=== PATIENT | male | born 1975 | race Caucasian/White ===

== ENCOUNTER 2017-09-20 11:56 | Emergency (ER) | payer OTHER, MEDICARE ==
[~2017-09-20] VITALS: Ht 170.1 cm; Wt 75.7 kg
[~2017-09-20 11:56] MED LIST: KEPPRA1000 MG PO; LABETALOL HCL200 MG PO
[2017-09-20 12:51] LABS: BASO % 0.3 % (0.0-1.0); EOS # 0.1 10*3/uL (0.0-0.4); EOS % 1.6 % (1.0-4.0); HEMATOCRIT 36.9 % (42.0-52.0); HEMOGLOBIN 12.5 g/dl (14.0-18.0); LYMPH # 1.5 10*3/uL (1.3-4.4); LYMPH % 21.4 % (27.0-41.0); MEAN CELL VOLUME 84.6 fl (80.0-94.0); MEAN CORPUSCULAR HGB 28.7 pg (27.0-31.0); MEAN CORPUSCULAR HGB CONC 33.9 g/dl (33.0-37.0); MEAN PLATELET VOLUME 10.7 fl (9.6-12.3); MONO # 0.4 10*3/uL (0.1-1.0); MONO % 5.5 % (3.0-9.0); NEUT # 4.9 10*3/uL (2.3-7.9); NEUT % 70.8 % (47.0-73.0); PLATELET COUNT AUTOMATED 151 10*3/uL (130-400); RED BLOOD COUNT 4.36 10*6/uL (4.50-5.90); RED CELL DISTRI WIDTH 13.5 % (0-14.5)
[2017-09-20 13:00] LABS: ACT PARTIAL THROMBO TIME 35.6 SECONDS (20.8-31.5); INTERNATIONAL NORM RATIO 2.7 (2.0-3.5)
[2017-09-20 13:10] LABS: ALBUMIN 3.9 gm/dl (3.1-4.5); ALKALINE PHOSPHATASE 89 U/L (45-117); BUN 32 mg/dl (7-24); CHLORIDE 105 mmol/L (98-107); CREATININE 1.78 mg/dL (0.70-1.30); LIPASE 266 U/L (73-393); POTASSIUM 4.7 mmol/L (3.5-5.1); SGOT/AST 17 IU/L (3-35); SGPT/ALT 28 U/L (12-78); SODIUM 139 mmol/L (136-145); TOTAL PROTEIN 7.4 gm/dL (6.4-8.2)
[2017-09-20 13:16] LABS: ACETAMINOPHEN (TYLENOL) < 2.0 ug/ml (10-30); ETHYL ALCOHOL < 3.0 mg/dl (<3)
[2017-09-20] MEDS ORDERED: ZOLOFT100 MG PO (13:31)
[2017-09-20] MEDS ORDERED: MULTIVITAMINS1 EAC5 PO (13:31)
[2017-09-20] MEDS ORDERED: LISINOPRIL10 M1 PO (13:31)
[2017-09-20] MEDS ORDERED: LIPITOR10 MG PO (13:31)
[2017-09-20] MEDS ORDERED: VITAMIN D31000 UNI1 PO (13:32)
[2017-09-20 14:40] LABS: BILIRUBIN NEGATIVE (NEGATIVE); BLOOD 3+ (NEGATIVE); CLARITY CLEAR (CLEAR); COLOR YELLOW (YELLOW); GLUCOSE NEGATIVE (NEGATIVE); KETONE NEGATIVE (NEGATIVE); LEUKO ESTERASE NEGATIVE (NEGATIVE); NITRITE NEGATIVE (NEGATIVE); SPECIFIC GRAVITY 1.015 (1.005-1.030); UROBILINOGEN 0.2 E.U./dl (0.2-1.0)
[2017-09-20 14:50] LABS: URINE AMPHETAMINES < 1000 (1000ng/ml); URINE BARBITURATES < 200 (200ng/ml); URINE BENZODIAZEPINES < 200 (200ng/ml); URINE CANNABINOIDS (THC) < 50 (50ng/ml); URINE COCAINE < 300 (300ng/ml); URINE METHADONE < 300 (300ng/ml); URINE OPIATES < 300 (300ng/ml)
[2017-09-20 14:53] LABS: URINE PHENCYCLIDINE < 25 (25ng/ml)
[2017-09-20 15:00] LABS: BACTERIA TRACE; WBC 0-2 wbc/hpf (0-5)
== END 2017-09-20 16:35 | disposition home or self-care (01) ==
LOC: ED 11:56
PROVIDERS: Physician Assistant
DX: I82.5Z2 Chronic embolism and thrombosis of unspecified deep veins of left distal lower extremity (principal); Z79.899 Other long term (current) drug therapy; Z98.890 Other specified postprocedural states; Z79.01 Long term (current) use of anticoagulants

== ENCOUNTER 2017-12-31 22:30 | Emergency (ER) | payer MEDICARE, OTHER ==
[~2017-12-31] VITALS: Ht 172.7 cm; Wt 63.5 kg
[~2017-12-31 22:30] MED LIST changes: +AMANTADINE HCL100 M1 PO; +AMPICILLIN2 GM IJ; +APLISOL5 TUB UNIT IC; +BISACODYL10 MG RC; +ENULOSE10 GM/151 PO; +FEROSUL325 MG PO; +HEPARIN SO5000 UNIT1 IJ; +KEPPRA750 MG PO; +LIPITOR10 MG PO; +LIPITOR20 MG PO; +LISINOPRIL10 M1 PO; +MAPAP325 MG PO; +MULTIVITAMINS1 EAC5 PO; +SENNOSIDES-DOC1 EACH PO; +SERTRALINE HYDR25 MG PO; +Saline Flush Syr5 ML IV; +VITAMIN C500 M8 PO; +VITAMIN D31000 UNI1 PO; +ZOLOFT100 MG PO
[2018-01-01 00:20] LABS: BASO # 0.1 10*3/uL (0.0-0.1); BASO % 0.6 % (0.0-1.0); EOS # 0.1 10*3/uL (0.0-0.4); EOS % 1.2 % (1.0-4.0); HEMATOCRIT 32.3 % (42.0-52.0); HEMOGLOBIN 10.4 g/dl (14.0-18.0); LYMPH # 1.7 10*3/uL (1.3-4.4); LYMPH % 18.8 % (27.0-41.0); MEAN CELL VOLUME 84.3 fl (80.0-94.0); MEAN CORPUSCULAR HGB 27.2 pg (27.0-31.0); MEAN CORPUSCULAR HGB CONC 32.2 g/dl (33.0-37.0); MEAN PLATELET VOLUME 9.6 fl (9.6-12.3); MONO # 0.5 10*3/uL (0.1-1.0); MONO % 5.1 % (3.0-9.0); NEUT # 6.7 10*3/uL (2.3-7.9); NEUT % 73.9 % (47.0-73.0); PLATELET COUNT AUTOMATED 308 10*3/uL (130-400); RED BLOOD COUNT 3.83 10*6/uL (4.50-5.90); RED CELL DISTRI WIDTH 15.8 % (0-14.5); WHITE BLOOD COUNT 9.1 10*3/uL (4.8-10.8)
[2018-01-01 00:30] LABS: ACT PARTIAL THROMBO TIME 26.3 SECONDS (20.8-31.5); INTERNATIONAL NORM RATIO 1.1 (2.0-3.5)
== END 2018-01-01 01:01 | disposition home or self-care (01) ==
LOC: ED 22:30
PROVIDERS: Student in an Organized Health Care Education/Training Program
DX: S00.93XA Contusion of unspecified part of head, initial encounter (principal); Z79.899 Other long term (current) drug therapy; W18.39XA Other fall on same level, initial encounter; Y93.89 Activity, other specified; Y92.531 Health care provider office as the place of occurrence of the external cause; Y99.8 Other external cause status

== ENCOUNTER 2018-02-07 11:06 | Emergency (ER) | payer OTHER, MEDICARE ==
[~2018-02-07] VITALS: Ht 170.1 cm; Wt 61.2 kg
[~2018-02-07 11:06] MED LIST changes: +SERTRALINE HYD100 MG PO; -SERTRALINE HYDR25 MG PO
[2018-02-07 11:32] LABS: BASO % 0.5 % (0.0-1.0); EOS # 0.1 10*3/uL (0.0-0.4); EOS % 1.9 % (1.0-4.0); HEMATOCRIT 40.4 % (42.0-52.0); HEMOGLOBIN 13.2 g/dl (14.0-18.0); LYMPH # 1.2 10*3/uL (1.3-4.4); LYMPH % 17.9 % (27.0-41.0); MEAN CELL VOLUME 84.3 fl (80.0-94.0); MEAN CORPUSCULAR HGB 27.6 pg (27.0-31.0); MEAN CORPUSCULAR HGB CONC 32.7 g/dl (33.0-37.0); MEAN PLATELET VOLUME 10.6 fl (9.6-12.3); MONO # 0.3 10*3/uL (0.1-1.0); MONO % 4.9 % (3.0-9.0); NEUT # 4.8 10*3/uL (2.3-7.9); NEUT % 74.6 % (47.0-73.0); PLATELET COUNT AUTOMATED 177 10*3/uL (130-400); RED BLOOD COUNT 4.79 10*6/uL (4.50-5.90); RED CELL DISTRI WIDTH 15.1 % (0-14.5); WHITE BLOOD COUNT 6.5 10*3/uL (4.8-10.8)
[2018-02-07 11:39] LABS: INTERNATIONAL NORM RATIO 2.6 (2.0-3.5)
[2018-02-07 11:47] LABS: ALBUMIN 3.9 gm/dl (3.1-4.5); CREATININE 1.67 mg/dL (0.70-1.30); POTASSIUM 3.8 mmol/L (3.5-5.1); TOTAL PROTEIN 7.3 gm/dL (6.4-8.2)
[2018-02-07 14:01] LABS: BILIRUBIN NEGATIVE (NEGATIVE); BLOOD 3+ (NEGATIVE); CLARITY SL CLOUDY (CLEAR); GLUCOSE NEGATIVE (NEGATIVE); KETONE NEGATIVE (NEGATIVE); LEUKO ESTERASE TRACE (NEGATIVE); NITRITE NEGATIVE (NEGATIVE); PH 6.5 (5.0-9.0); SPECIFIC GRAVITY <= 1.005 (1.005-1.030); UROBILINOGEN 0.2 E.U./dl (0.2-1.0)
[2018-02-07 14:25] LABS: COLOR RED (YELLOW); RBC TNTC rbc/hpf (0-2)
[2018-04-09] MEDS ORDERED: DESMOPRESSIN NAS (14:03)
[2018-04-09] MEDS ORDERED: HYDROCHLOROTH12.5 M2 PO (14:05)
== END 2018-02-07 17:22 | disposition home or self-care (01) ==
LOC: ED 11:06
PROVIDERS: Nurse Practitioner Family
DX: N20.0 Calculus of kidney (principal); R31.9 Hematuria, unspecified; I10 Essential (primary) hypertension; Z79.02 Long term (current) use of antithrombotics/antiplatelets; Z79.899 Other long term (current) drug therapy

== ENCOUNTER 2018-03-09 15:22 | Inpatient (IN) | payer OTHER, MEDICARE ==
[~2018-03-09] VITALS: Ht 170.1 cm; Wt 65.9 kg
[2018-03-09] VITALS (7 sets, daily range): BP systolic 170–190; BP diastolic 80–123
--- NOTE | ~2018-03-09 | EKG ---
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
--- NOTE | ~2018-03-09 | EKG ---
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
[2018-03-09 15:54] LABS: BASO # 0.1 10*3/uL (0.0-0.1); BASO % 0.6 % (0.0-1.0); EOS # 0.1 10*3/uL (0.0-0.4); EOS % 1.5 % (1.0-4.0); HEMOGLOBIN 14.7 g/dl (14.0-18.0); LYMPH # 1.7 10*3/uL (1.3-4.4); LYMPH % 17.6 % (27.0-41.0); MEAN CELL VOLUME 84.1 fl (80.0-94.0); MEAN CORPUSCULAR HGB 27.5 pg (27.0-31.0); MEAN CORPUSCULAR HGB CONC 32.7 g/dl (33.0-37.0); MEAN PLATELET VOLUME 11.6 fl (9.6-12.3); MONO # 0.5 10*3/uL (0.1-1.0); NEUT # 7.2 10*3/uL (2.3-7.9); NEUT % 75.1 % (47.0-73.0); PLATELET COUNT AUTOMATED 163 10*3/uL (130-400); RED BLOOD COUNT 5.35 10*6/uL (4.50-5.90); RED CELL DISTRI WIDTH 14.8 % (0-14.5); WHITE BLOOD COUNT 9.5 10*3/uL (4.8-10.8)
[2018-03-09 16:05] LABS: INTERNATIONAL NORM RATIO 3.4 (2.0-3.5)
[2018-03-09 16:13] LABS: ALBUMIN 3.7 gm/dl (3.1-4.5); ALKALINE PHOSPHATASE 132 U/L (45-117); BUN 32 mg/dl (7-24); CHLORIDE 118 mmol/L (98-107); CREATININE 2.01 mg/dL (0.70-1.30); POTASSIUM 3.5 mmol/L (3.5-5.1); SGOT/AST 19 IU/L (3-35); SGPT/ALT 37 U/L (12-78); SODIUM 155 mmol/L (136-145); TOTAL PROTEIN 7.3 gm/dL (6.4-8.2)
[2018-03-09 16:15] LABS: TROPONIN I < 0.015 ng/ml (<0.045)
[2018-03-09 16:42] LABS: BILIRUBIN NEGATIVE (NEGATIVE); BLOOD 2+ (NEGATIVE); CLARITY SL CLOUDY (CLEAR); COLOR YELLOW (YELLOW); GLUCOSE NEGATIVE (NEGATIVE); KETONE NEGATIVE (NEGATIVE); LEUKO ESTERASE NEGATIVE (NEGATIVE); NITRITE NEGATIVE (NEGATIVE); UROBILINOGEN 0.2 E.U./dl (0.2-1.0)
[2018-03-09 16:51] LABS: BACTERIA 4+; URINE AMPHETAMINES < 1000 (1000ng/ml); URINE BARBITURATES < 200 (200ng/ml); URINE BENZODIAZEPINES < 200 (200ng/ml); URINE CANNABINOIDS (THC) < 50 (50ng/ml); URINE COCAINE < 300 (300ng/ml); URINE METHADONE < 300 (300ng/ml); URINE OPIATES < 300 (300ng/ml)
[2018-03-09 16:54] LABS: URINE PHENCYCLIDINE < 25 (25ng/ml)
[2018-03-09] MEDS ORDERED: NORVASC10 MG PO (21:07)
[2018-03-09] MEDS ORDERED: CLONIDINE0.2 MG PO (21:08)
[2018-03-09] MEDS ORDERED: COUMADIN2.5 M1 PO (21:10)
[2018-03-09] MEDS ORDERED: IRON325 M3 PO (21:11)
[2018-03-10] VITALS: BP 142/70
[2018-03-10 06:54] LABS: BASO % 0.4 % (0.0-1.0); EOS # 0.2 10*3/uL (0.0-0.4); EOS % 2.5 % (1.0-4.0); HEMATOCRIT 41.2 % (42.0-52.0); HEMOGLOBIN 13.3 g/dl (14.0-18.0); LYMPH # 1.9 10*3/uL (1.3-4.4); LYMPH % 27.8 % (27.0-41.0); MEAN CELL VOLUME 84.4 fl (80.0-94.0); MEAN CORPUSCULAR HGB 27.3 pg (27.0-31.0); MEAN CORPUSCULAR HGB CONC 32.3 g/dl (33.0-37.0); MEAN PLATELET VOLUME 12.6 fl (9.6-12.3); MONO # 0.4 10*3/uL (0.1-1.0); MONO % 5.6 % (3.0-9.0); NEUT # 4.4 10*3/uL (2.3-7.9); NEUT % 63.4 % (47.0-73.0); PLATELET COUNT AUTOMATED 130 10*3/uL (130-400); RED BLOOD COUNT 4.88 10*6/uL (4.50-5.90); RED CELL DISTRI WIDTH 14.8 % (0-14.5); WHITE BLOOD COUNT 6.9 10*3/uL (4.8-10.8)
[2018-03-10 07:08] LABS: ALBUMIN 3.1 gm/dl (3.1-4.5); CREATININE 1.57 mg/dL (0.70-1.30); FREE T4 0.77 ng/dl (0.76-1.46); PHOSPHOROUS 3.2 mg/dL (2.5-4.9); POTASSIUM 3.6 mmol/L (3.5-5.1); TOTAL PROTEIN 6.5 gm/dL (6.4-8.2)
[2018-03-10 07:13] LABS: THYROID STIM HORMONE (HS) 0.976 uIU/ml (0.358-4.75)
[2018-03-10 08:00] VITALS: BP 182/98
[2018-03-10 12:00] VITALS: BP 196/110
[2018-03-10 16:00] VITALS: BP 161/101
[2018-03-10 17:08] LABS: CREATININE 1.57 mg/dL (0.70-1.30); POTASSIUM 3.5 mmol/L (3.5-5.1)
[2018-03-10 20:00] VITALS: BP 150/102
[2018-03-11] VITALS: BP 156/101
[2018-03-11 07:09] LABS: BASO % 0.4 % (0.0-1.0); EOS # 0.2 10*3/uL (0.0-0.4); EOS % 2.9 % (1.0-4.0); HEMOGLOBIN 12.6 g/dl (14.0-18.0); LYMPH # 1.8 10*3/uL (1.3-4.4); LYMPH % 25.7 % (27.0-41.0); MEAN CELL VOLUME 83.9 fl (80.0-94.0); MEAN CORPUSCULAR HGB 27.1 pg (27.0-31.0); MEAN CORPUSCULAR HGB CONC 32.3 g/dl (33.0-37.0); MEAN PLATELET VOLUME 12.2 fl (9.6-12.3); MONO # 0.3 10*3/uL (0.1-1.0); MONO % 4.8 % (3.0-9.0); NEUT # 4.7 10*3/uL (2.3-7.9); NEUT % 65.9 % (47.0-73.0); PLATELET COUNT AUTOMATED 121 10*3/uL (130-400); RED BLOOD COUNT 4.65 10*6/uL (4.50-5.90); RED CELL DISTRI WIDTH 14.7 % (0-14.5); WHITE BLOOD COUNT 7.1 10*3/uL (4.8-10.8)
[2018-03-11 07:16] LABS: INTERNATIONAL NORM RATIO 2.7 (2.0-3.5)
[2018-03-11 07:31] LABS: ALBUMIN 2.8 gm/dl (3.1-4.5); POTASSIUM 3.6 mmol/L (3.5-5.1)
[2018-03-11 07:34] LABS: CREATININE 1.62 mg/dL (0.70-1.30); PHOSPHOROUS 3.2 mg/dL (2.5-4.9)
[2018-03-11 08:00] VITALS: BP 138/93
[2018-03-11 12:00] VITALS: BP 140/83
[2018-03-11 16:00] VITALS: BP 140/96
[2018-03-11 20:00] VITALS: BP 121/92
[2018-03-12] VITALS: BP 140/90
[2018-03-12 06:29] LABS: BASO % 0.5 % (0.0-1.0); EOS # 0.2 10*3/uL (0.0-0.4); EOS % 2.3 % (1.0-4.0); HEMATOCRIT 38.3 % (42.0-52.0); HEMOGLOBIN 12.4 g/dl (14.0-18.0); LYMPH # 1.8 10*3/uL (1.3-4.4); LYMPH % 24.4 % (27.0-41.0); MEAN CELL VOLUME 83.1 fl (80.0-94.0); MEAN CORPUSCULAR HGB 26.9 pg (27.0-31.0); MEAN CORPUSCULAR HGB CONC 32.4 g/dl (33.0-37.0); MONO # 0.3 10*3/uL (0.1-1.0); MONO % 4.6 % (3.0-9.0); NEUT % 67.9 % (47.0-73.0); PLATELET COUNT AUTOMATED 112 10*3/uL (130-400); RED BLOOD COUNT 4.61 10*6/uL (4.50-5.90); RED CELL DISTRI WIDTH 14.6 % (0-14.5); WHITE BLOOD COUNT 7.4 10*3/uL (4.8-10.8)
[2018-03-12 06:39] LABS: POTASSIUM 3.6 mmol/L (3.5-5.1)
[2018-03-12 06:42] LABS: CREATININE 1.74 mg/dL (0.70-1.30); TOTAL PROTEIN 6.1 gm/dL (6.4-8.2)
[2018-03-12 07:15] LABS: INTERNATIONAL NORM RATIO 2.4 (2.0-3.5)
[2018-03-12 08:00] VITALS: BP 137/86
[2018-03-12 11:55] LABS: BILIRUBIN NEGATIVE (NEGATIVE); BLOOD 1+ (NEGATIVE); COLOR YELLOW (YELLOW); GLUCOSE NEGATIVE (NEGATIVE); KETONE NEGATIVE (NEGATIVE); LEUKO ESTERASE 1+ (NEGATIVE); NITRITE NEGATIVE (NEGATIVE); SPECIFIC GRAVITY <= 1.005 (1.005-1.030); UROBILINOGEN 0.2 E.U./dl (0.2-1.0)
[2018-03-12 12:11] LABS: CLARITY SL CLOUDY (CLEAR)
[2018-03-12 12:12] LABS: BACTERIA 2+; WBC 21-30 wbc/hpf (0-5)
[2018-03-12 12:14] VITALS: BP 132/90
[2018-03-12 16:00] VITALS: BP 141/85
[2018-03-12 19:03] LABS: CREATININE 1.82 mg/dL (0.70-1.30); POTASSIUM 3.8 mmol/L (3.5-5.1)
[2018-03-12 20:00] VITALS: BP 136/90
[2018-03-13] VITALS: BP 142/90
[2018-03-13 06:10] VITALS: BP 152/98
[2018-03-13 06:28] LABS: CREATININE 1.72 mg/dL (0.70-1.30); POTASSIUM 3.6 mmol/L (3.5-5.1)
[2018-03-13 06:48] LABS: BASO % 0.4 % (0.0-1.0); EOS # 0.2 10*3/uL (0.0-0.4); EOS % 2.3 % (1.0-4.0); HEMATOCRIT 36.9 % (42.0-52.0); HEMOGLOBIN 12.1 g/dl (14.0-18.0); LYMPH # 1.8 10*3/uL (1.3-4.4); LYMPH % 23.4 % (27.0-41.0); MEAN CELL VOLUME 83.1 fl (80.0-94.0); MEAN CORPUSCULAR HGB 27.3 pg (27.0-31.0); MEAN CORPUSCULAR HGB CONC 32.8 g/dl (33.0-37.0); MEAN PLATELET VOLUME 12.1 fl (9.6-12.3); MONO # 0.4 10*3/uL (0.1-1.0); MONO % 5.3 % (3.0-9.0); NEUT # 5.1 10*3/uL (2.3-7.9); NEUT % 68.2 % (47.0-73.0); PLATELET COUNT AUTOMATED 127 10*3/uL (130-400); RED BLOOD COUNT 4.44 10*6/uL (4.50-5.90); RED CELL DISTRI WIDTH 14.8 % (0-14.5); WHITE BLOOD COUNT 7.5 10*3/uL (4.8-10.8)
[2018-03-13 12:00] VITALS: BP 133/87
[2018-03-13 16:00] VITALS: BP 134/72
[2018-03-13 20:00] VITALS: BP 130/84
[2018-03-14] VITALS: BP 153/94
[2018-03-14 00:16] VITALS: BP 140/96
[2018-03-14 00:38] LABS: BILIRUBIN NEGATIVE (NEGATIVE); BLOOD 3+ (NEGATIVE); CLARITY SL CLOUDY (CLEAR); COLOR RED (YELLOW); GLUCOSE NEGATIVE (NEGATIVE); KETONE NEGATIVE (NEGATIVE); LEUKO ESTERASE 2+ (NEGATIVE); NITRITE NEGATIVE (NEGATIVE); SPECIFIC GRAVITY <= 1.005 (1.005-1.030); UROBILINOGEN 0.2 E.U./dl (0.2-1.0)
[2018-03-14 00:58] LABS: RBC TNTC rbc/hpf (0-2)
[2018-03-14 06:28] LABS: CREATININE 1.76 mg/dL (0.70-1.30); POTASSIUM 3.8 mmol/L (3.5-5.1)
[2018-03-14 10:41] LABS: CREATININE 1.78 mg/dL (0.70-1.30); POTASSIUM 3.7 mmol/L (3.5-5.1)
[2018-03-14 12:00] VITALS: BP 151/92
[2018-03-14 13:02] LABS: BASO % 0.2 % (0.0-1.0); HEMATOCRIT 41.5 % (42.0-52.0); HEMOGLOBIN 13.3 g/dl (14.0-18.0); LYMPH # 0.4 10*3/uL (1.3-4.4); LYMPH % 6.8 % (27.0-41.0); MEAN CELL VOLUME 85.7 fl (80.0-94.0); MEAN CORPUSCULAR HGB 27.5 pg (27.0-31.0); MEAN PLATELET VOLUME 11.1 fl (9.6-12.3); MONO # 0.3 10*3/uL (0.1-1.0); MONO % 5.2 % (3.0-9.0); NEUT % 87.6 % (47.0-73.0); PLATELET COUNT AUTOMATED 110 10*3/uL (130-400); RED BLOOD COUNT 4.84 10*6/uL (4.50-5.90); RED CELL DISTRI WIDTH 14.9 % (0-14.5); WHITE BLOOD COUNT 5.7 10*3/uL (4.8-10.8)
[2018-03-14 13:16] LABS: ALBUMIN 3.3 gm/dl (3.1-4.5); CREATININE 1.95 mg/dL (0.70-1.30); POTASSIUM 4.2 mmol/L (3.5-5.1); TOTAL PROTEIN 7.2 gm/dL (6.4-8.2)
[2018-03-14 14:48] VITALS: BP 160/110
[2018-03-14 16:00] VITALS: BP 151/92
[2018-03-14 20:00] VITALS: BP 135/99
[2018-03-15] VITALS: BP 151/96
[2018-03-15 06:59] LABS: CREATININE 1.68 mg/dL (0.70-1.30); POTASSIUM 3.5 mmol/L (3.5-5.1)
[2018-03-15 07:00] LABS: BASO % 0.6 % (0.0-1.0); EOS # 0.1 10*3/uL (0.0-0.4); EOS % 1.2 % (1.0-4.0); HEMOGLOBIN 11.4 g/dl (14.0-18.0); LYMPH # 0.7 10*3/uL (1.3-4.4); LYMPH % 15.4 % (27.0-41.0); MEAN CORPUSCULAR HGB 27.5 pg (27.0-31.0); MEAN CORPUSCULAR HGB CONC 33.3 g/dl (33.0-37.0); MEAN PLATELET VOLUME 12.1 fl (9.6-12.3); MONO # 0.2 10*3/uL (0.1-1.0); MONO % 4.8 % (3.0-9.0); NEUT # 3.7 10*3/uL (2.3-7.9); NEUT % 77.8 % (47.0-73.0); PLATELET COUNT AUTOMATED 123 10*3/uL (130-400); RED BLOOD COUNT 4.15 10*6/uL (4.50-5.90); RED CELL DISTRI WIDTH 14.8 % (0-14.5); WHITE BLOOD COUNT 4.8 10*3/uL (4.8-10.8)
[2018-03-15 07:07] LABS: HEMATOCRIT 34.2 % (42.0-52.0); MEAN CELL VOLUME 82.4 fl (80.0-94.0)
[2018-03-15 07:14] LABS: INTERNATIONAL NORM RATIO 3.8 (2.0-3.5)
[2018-03-15 08:00] VITALS: BP 146/99
[2018-03-15 12:00] VITALS: BP 148/102
[2018-03-15 16:00] VITALS: BP 130/90
[2018-03-15 20:00] VITALS: BP 113/83
[2018-03-16] VITALS: BP 121/86
[2018-03-16 06:30] LABS: BASO % 0.4 % (0.0-1.0); EOS # 0.1 10*3/uL (0.0-0.4); EOS % 2.4 % (1.0-4.0); HEMATOCRIT 31.2 % (42.0-52.0); HEMOGLOBIN 10.4 g/dl (14.0-18.0); LYMPH # 1.5 10*3/uL (1.3-4.4); LYMPH % 27.8 % (27.0-41.0); MEAN CELL VOLUME 82.8 fl (80.0-94.0); MEAN CORPUSCULAR HGB 27.6 pg (27.0-31.0); MEAN CORPUSCULAR HGB CONC 33.3 g/dl (33.0-37.0); MEAN PLATELET VOLUME 11.9 fl (9.6-12.3); MONO # 0.3 10*3/uL (0.1-1.0); MONO % 6.2 % (3.0-9.0); NEUT # 3.5 10*3/uL (2.3-7.9); PLATELET COUNT AUTOMATED 129 10*3/uL (130-400); RED BLOOD COUNT 3.77 10*6/uL (4.50-5.90); RED CELL DISTRI WIDTH 14.9 % (0-14.5); WHITE BLOOD COUNT 5.5 10*3/uL (4.8-10.8)
[2018-03-16 06:41] LABS: CREATININE 1.54 mg/dL (0.70-1.30); POTASSIUM 3.6 mmol/L (3.5-5.1)
[2018-03-16 06:56] LABS: INTERNATIONAL NORM RATIO 3.8 (2.0-3.5)
[2018-03-16 08:00] VITALS: BP 108/82
[2018-03-16] MEDS ORDERED: DESMOPRESSIN NAS (11:16)
[2018-03-16] MEDS ORDERED: CLONIDINE HCL0.2 MG PO (11:16)
[2018-03-16] MEDS ORDERED: CIPROFLOXACIN500 M4 PO (11:16)
[2018-03-16] MEDS ORDERED: LEVETIRACETAM250 MG PO (11:16)
[2018-03-16] MEDS ORDERED: APRESOLINE25 MG PO (11:16)
[2018-04-09] MEDS ORDERED: DESMOPRESSIN NAS (14:03)
[2018-04-09] MEDS ORDERED: HYDROCHLOROTH12.5 M2 PO (14:05)
== END 2018-03-16 16:36 | disposition home health service (06) | DRG 682 ==
LOC: ED 15:22 → 5E 18:25 → EDHOLD 18:25 → 5E 19:38
PROVIDERS: Emergency Medicine; Family Medicine; Internal Medicine; Internal Medicine Nephrology; Physician Assistant; Student in an Organized Health Care Education/Training Program
DX: N17.0 Acute kidney failure with tubular necrosis (principal); G93.41 Metabolic encephalopathy; I16.1 Hypertensive emergency; R65.10 Systemic inflammatory response syndrome (SIRS) of non-infectious origin without acute organ dysfunction; E87.0 Hyperosmolality and hypernatremia; N39.0 Urinary tract infection, site not specified; E23.2 Diabetes insipidus; D68.9 Coagulation defect, unspecified; E86.0 Dehydration; N18.3 Chronic kidney disease, stage 3 (moderate); N20.0 Calculus of kidney; N28.1 Cyst of kidney, acquired; E78.5 Hyperlipidemia, unspecified; I10 Essential (primary) hypertension; G40.909 Epilepsy, unspecified, not intractable, without status epilepticus; E83.41 Hypermagnesemia; I45.81 Long QT syndrome; T45.515A Adverse effect of anticoagulants, initial encounter; Y92.89 Other specified places as the place of occurrence of the external cause; Z86.718 Personal history of other venous thrombosis and embolism; Z86.711 Personal history of pulmonary embolism; Z87.891 Personal history of nicotine dependence; Z86.14 Personal history of Methicillin resistant Staphylococcus aureus infection; Z80.42 Family history of malignant neoplasm of prostate; Z82.49 Family history of ischemic heart disease and other diseases of the circulatory system; Z84.1 Family history of disorders of kidney and ureter; Z79.899 Other long term (current) drug therapy; Z79.01 Long term (current) use of anticoagulants

== ENCOUNTER → 2018-03-19 | Outpatient (CLI) | payer OTHER, MEDICARE ==
[~2018-03-19] MED LIST changes: +'CLONIDINE0.1 MG PO; +APRESOLINE25 MG PO; +CIPROFLOXACIN500 M4 PO; +CLONIDINE HCL0.2 MG PO; +CLONIDINE0.2 MG PO; +COUMADIN2.5 M1 PO; +DESMOPRESSIN NAS; +HYDR25T PO; +HYDROCHLOROTH12.5 M2 PO; +IRON325 M3 PO; +LEVETIRACETAM250 MG PO; +LEVETIRACETAM750 MG PO; +NORVASC10 MG PO; +POTASSIUM CHLO20 ME4 PO
[2018-03-19 14:14] LABS: INTERNATIONAL NORM RATIO 1.3 (2.0-3.5)
== END | disposition home or self-care (01) ==
LOC: LAB 13:28
PROVIDERS: Internal Medicine
DX: R79.1 Abnormal coagulation profile (principal)

== ENCOUNTER 2018-04-19 15:44 | Inpatient (IN) | payer OTHER, MEDICARE ==
[~2018-04-19] VITALS: Ht 170.2 cm; Wt 70.3 kg
--- NOTE | ~2018-04-19 | EKG ---
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
--- NOTE | ~2018-04-19 | PR ---
[place], [place] PROGRESS NOTE [id number] UNIT #: [id number] ROOM: 526 DOCTOR: ELISHA REDMAN DO BIRTHDATE: [birth year] DOS: 04/22/2018 SUBJECTIVE: The patient remains awake, alert, has been reportedly eating well without any nausea, vomiting, diarrhea, presyncope or weakness. PHYSICAL EXAMINATION: VITAL SIGNS: Blood pressure 153/90, pulse 63, respiration 18, temperature was 98.1 degrees Fahrenheit. GENERAL APPEARANCE: A 43-year-old male, awake, alert, oriented to person only. HEENT: He does wear a protective helmet. LUNGS: Clear to auscultation and percussion. HEART: Regular, without an S3, rub, murmur, heave. ABDOMEN: Soft. EXTREMITIES: No clubbing or cyanosis. He does have +1 edema, unchanged from the past. LABORATORY DATA: From today, most recent sodium of 125, potassium of 5.2, chloride of 86, CO2 of 26, BUN of 18, creatinine 0.93, glucose is 99, and calcium is 8.9. Note, this specimen was hemolyzed at 1300. Sodium is 126, potassium 2.7, chloride of 85, CO2 30, BUN 14, creatinine 0.92, glucose of 164, magnesium of 1.6, calcium 8.7. At 4:54 a.m., sodium 127, potassium 3.5, chloride of 85, CO2 30, BUN 13, creatinine 0.83, glucose of 93, calcium 8.5. ASSESSMENT AND PLAN: 1. Hyponatremia. Sodiums have been increasing in the appropriate rate. He did initially exhibit signs of a rapid correction and did require several boluses of D5W IV along with the administration of several doses of intravenous DDAVP. The DDAVP has been stopped as of this morning. His p.o. fluid restrictions have been liberalized to 2 liters daily. He is now transferred out of the ICU; however, nursing staff on the floor was not aware of the p.o. fluid restrictions. 2. Hypokalemia. This may appears to have been resolved. As the specimen was hemolyzed, magnesium has been satisfactory. 3. ____ etiology is unclear. ____ while he has edema. Urine protein to creatinine ratios were checked yesterday, found to be 1.3, this compares to a previous urine protein to creatinine ratio of 3.2 from 04/05/2018. He has been noted to have protein on several UAs in the past. Unusual presentation of his ____ disease, etiology otherwise unclear. 4. Question diabetes insipidus. DDAVP had been utilized as an outpatient, has been initially held on this admission, but then resumed intravenously to aide with the over rapidly correction of his hyponatremia. 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 RECOMMENDATIONS: We will continue to closely follow his sodium balance to assure that it does not overly rapidly correct. Fluid restrictions have been reinforced with the nursing staff as well. We will continue off of DDAVP for the moment. [place], [place] PROGRESS NOTE NAME: DEEPTI GREWAL UNIT #: [id number] ROOM: 526 DOCTOR: ELISHA REDMAN DO BIRTHDATE: [birth year] ELISHA REDMAN DO CM:JEAN 30 2315 ELISHA REDMAN DO 04/23/18 1136 interface
--- NOTE | ~2018-04-19 | EKG ---
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
[~2018-04-19 15:44] MED LIST changes: -'CLONIDINE0.1 MG PO; -HYDR25T PO; -LEVETIRACETAM750 MG PO; -POTASSIUM CHLO20 ME4 PO
[2018-04-19 15:46] VITALS: BP 167/100
[2018-04-19 16:31] LABS: ACT PARTIAL THROMBO TIME 36.4 SECONDS (20.8-31.5); INTERNATIONAL NORM RATIO 1.7 (2.0-3.5)
[2018-04-19 16:35] LABS: ALBUMIN 3.5 gm/dl (3.1-4.5); ALKALINE PHOSPHATASE 125 U/L (45-117); BUN 14 mg/dl (7-24); CREATININE 0.86 mg/dL (0.70-1.30); POTASSIUM 2.6 mmol/L (3.5-5.1); SGOT/AST 20 IU/L (3-35); SGPT/ALT 24 U/L (12-78); TOTAL PROTEIN 6.9 gm/dL (6.4-8.2)
[2018-04-19 16:41] LABS: CHLORIDE 71 mmol/L (98-107)
[2018-04-19 16:42] LABS: SODIUM 111 mmol/L (136-145)
[2018-04-19 16:51] LABS: BASO % 0.5 % (0.0-1.0); EOS # 0.1 10*3/uL (0.0-0.4); HEMATOCRIT 29.6 % (42.0-52.0); HEMOGLOBIN 10.7 g/dl (14.0-18.0); LYMPH # 0.9 10*3/uL (1.3-4.4); LYMPH % 11.7 % (27.0-41.0); MEAN CORPUSCULAR HGB 26.8 pg (27.0-31.0); MEAN CORPUSCULAR HGB CONC 36.1 g/dl (33.0-37.0); MEAN PLATELET VOLUME 9.6 fl (9.6-12.3); MONO # 0.5 10*3/uL (0.1-1.0); MONO % 6.1 % (3.0-9.0); NEUT # 5.9 10*3/uL (2.3-7.9); NEUT % 80.3 % (47.0-73.0); PLATELET COUNT AUTOMATED 365 10*3/uL (130-400); WHITE BLOOD COUNT 7.4 10*3/uL (4.8-10.8)
[2018-04-19 17:41] VITALS: BP 176/98
[2018-04-19 18:00] VITALS: BP 165/96
[2018-04-19] MEDS ORDERED: POTASSIUM CHLO20 ME4 PO (18:20)
[2018-04-19] MEDS ORDERED: LEVETIRACETAM750 MG PO (18:27)
[2018-04-19 19:48] LABS: BILIRUBIN NEGATIVE (NEGATIVE); BLOOD 3+ (NEGATIVE); CLARITY CLEAR (CLEAR); COLOR YELLOW (YELLOW); GLUCOSE NEGATIVE (NEGATIVE); KETONE NEGATIVE (NEGATIVE); LEUKO ESTERASE NEGATIVE (NEGATIVE); NITRITE NEGATIVE (NEGATIVE); PH 6.5 (5.0-9.0); SPECIFIC GRAVITY <= 1.005 (1.005-1.030); UROBILINOGEN 0.2 E.U./dl (0.2-1.0)
[2018-04-19 20:00] VITALS: BP 164/99
[2018-04-19 20:06] LABS: BACTERIA TRACE; RBC TNTC rbc/hpf (0-2); WBC 0-2 wbc/hpf (0-5)
[2018-04-19 21:22] LABS: BUN 13 mg/dl (7-24)
[2018-04-19 21:32] LABS: POTASSIUM 2.4 mmol/L (3.5-5.1); SODIUM 113 mmol/L (136-145)
[2018-04-19 21:33] LABS: CHLORIDE 71 mmol/L (98-107)
[2018-04-20] VITALS: BP 148/92
[2018-04-20 04:00] VITALS: BP 157/97
[2018-04-20 05:34] LABS: INTERNATIONAL NORM RATIO 1.9 (2.0-3.5)
[2018-04-20 05:41] LABS: BUN 11 mg/dl (7-24); CHLORIDE 75 mmol/L (98-107); CREATININE 0.77 mg/dL (0.70-1.30); PHOSPHOROUS 3.2 mg/dL (2.5-4.9)
[2018-04-20 05:46] LABS: POTASSIUM 2.4 mmol/L (3.5-5.1); SODIUM 115 mmol/L (136-145)
[2018-04-20 06:53] LABS: BASO # 0.1 10*3/uL (0.0-0.1); BASO % 0.7 % (0.0-1.0); EOS # 0.2 10*3/uL (0.0-0.4); EOS % 2.5 % (1.0-4.0); HEMATOCRIT 29.1 % (42.0-52.0); HEMOGLOBIN 10.8 g/dl (14.0-18.0); LYMPH # 1.5 10*3/uL (1.3-4.4); LYMPH % 22.6 % (27.0-41.0); MEAN CORPUSCULAR HGB 27.5 pg (27.0-31.0); MEAN PLATELET VOLUME 9.7 fl (9.6-12.3); MONO # 0.5 10*3/uL (0.1-1.0); MONO % 7.6 % (3.0-9.0); NEUT # 4.5 10*3/uL (2.3-7.9); NEUT % 66.2 % (47.0-73.0); PLATELET COUNT AUTOMATED 345 10*3/uL (130-400); RED BLOOD COUNT 3.93 10*6/uL (4.50-5.90); RED CELL DISTRI WIDTH 14.9 % (0-14.5); WHITE BLOOD COUNT 6.7 10*3/uL (4.8-10.8)
[2018-04-20 07:00] LABS: MEAN CORPUSCULAR HGB CONC 37.1 g/dl (33.0-37.0)
[2018-04-20 08:00] VITALS: BP 145/93
[2018-04-20 10:11] LABS: BUN 10 mg/dl (7-24); CHLORIDE 76 mmol/L (98-107); CREATININE 0.76 mg/dL (0.70-1.30); POTASSIUM 2.7 mmol/L (3.5-5.1)
[2018-04-20 10:13] LABS: SODIUM 117 mmol/L (136-145)
[2018-04-20 12:00] VITALS: BP 133/82
[2018-04-20 16:00] VITALS: BP 140/92
[2018-04-20 17:42] LABS: BUN 11 mg/dl (7-24); CHLORIDE 80 mmol/L (98-107); CREATININE 0.82 mg/dL (0.70-1.30)
[2018-04-20 17:45] LABS: SODIUM 119 mmol/L (136-145)
[2018-04-20 19:43] LABS: BILIRUBIN NEGATIVE (NEGATIVE); BLOOD 3+ (NEGATIVE); CLARITY CLEAR (CLEAR); COLOR YELLOW (YELLOW); GLUCOSE NEGATIVE (NEGATIVE); KETONE NEGATIVE (NEGATIVE); LEUKO ESTERASE TRACE (NEGATIVE); NITRITE NEGATIVE (NEGATIVE); SPECIFIC GRAVITY <= 1.005 (1.005-1.030); UROBILINOGEN 0.2 E.U./dl (0.2-1.0)
[2018-04-20 19:51] LABS: BACTERIA 2+
[2018-04-20 20:00] VITALS: BP 161/89
[2018-04-20 20:11] LABS: BUN 11 mg/dl (7-24); CHLORIDE 81 mmol/L (98-107); CREATININE 0.85 mg/dL (0.70-1.30); POTASSIUM 2.7 mmol/L (3.5-5.1); SODIUM 123 mmol/L (136-145)
[2018-04-20 20:20] LABS: URINE CREATININE RANDOM 21.3 mg/dL
[2018-04-21] VITALS: BP 136/97
[2018-04-21 00:14] LABS: BUN 10 mg/dl (7-24); CHLORIDE 83 mmol/L (98-107); CREATININE 0.82 mg/dL (0.70-1.30); POTASSIUM 2.8 mmol/L (3.5-5.1); SODIUM 123 mmol/L (136-145)
[2018-04-21 04:00] VITALS: BP 166/90
[2018-04-21 05:53] LABS: BUN 8 mg/dl (7-24); CHLORIDE 85 mmol/L (98-107); CREATININE 0.82 mg/dL (0.70-1.30); POTASSIUM 3.4 mmol/L (3.5-5.1); SODIUM 126 mmol/L (136-145)
[2018-04-21 06:16] LABS: INTERNATIONAL NORM RATIO 1.8 (2.0-3.5)
[2018-04-21 08:00] VITALS: BP 164/94
[2018-04-21 10:58] LABS: BUN 8 mg/dl (7-24); CHLORIDE 87 mmol/L (98-107); CREATININE 0.93 mg/dL (0.70-1.30); POTASSIUM 2.5 mmol/L (3.5-5.1); SODIUM 128 mmol/L (136-145)
[2018-04-21 12:00] VITALS: BP 154/88
[2018-04-21 15:34] LABS: BUN 11 mg/dl (7-24); CHLORIDE 89 mmol/L (98-107); CREATININE 0.89 mg/dL (0.70-1.30); SODIUM 132 mmol/L (136-145)
[2018-04-21 16:00] VITALS: BP 132/83
[2018-04-21 20:00] VITALS: BP 145/81
[2018-04-21 20:08] LABS: BUN 11 mg/dl (7-24); CHLORIDE 87 mmol/L (98-107); CREATININE 0.88 mg/dL (0.70-1.30); POTASSIUM 2.6 mmol/L (3.5-5.1); SODIUM 127 mmol/L (136-145)
[2018-04-21 22:37] LABS: BUN 12 mg/dl (7-24); CHLORIDE 86 mmol/L (98-107); CREATININE 0.86 mg/dL (0.70-1.30); POTASSIUM 2.6 mmol/L (3.5-5.1); SODIUM 127 mmol/L (136-145)
[2018-04-22] VITALS: BP 144/96
[2018-04-22 04:00] VITALS: BP 151/79
[2018-04-22 05:24] LABS: BUN 13 mg/dl (7-24); CHLORIDE 85 mmol/L (98-107); CREATININE 0.83 mg/dL (0.70-1.30); POTASSIUM 2.5 mmol/L (3.5-5.1); SODIUM 127 mmol/L (136-145)
[2018-04-22 08:00] VITALS: BP 135/87
[2018-04-22 12:00] VITALS: BP 133/83
[2018-04-22 13:16] LABS: BUN 14 mg/dl (7-24); CHLORIDE 85 mmol/L (98-107); CREATININE 0.92 mg/dL (0.70-1.30); POTASSIUM 2.7 mmol/L (3.5-5.1); SODIUM 126 mmol/L (136-145)
[2018-04-22 16:00] VITALS: BP 153/90
[2018-04-22 18:28] LABS: CHLORIDE 86 mmol/L (98-107); SODIUM 125 mmol/L (136-145)
[2018-04-22 18:29] LABS: BUN 18 mg/dl (7-24); CREATININE 0.93 mg/dL (0.70-1.30)
[2018-04-22 18:32] LABS: POTASSIUM 5.2 mmol/L (3.5-5.1)
[2018-04-22 20:00] VITALS: BP 161/93
[2018-04-22 21:42] LABS: BUN 19 mg/dl (7-24); CHLORIDE 86 mmol/L (98-107); CREATININE 0.86 mg/dL (0.70-1.30); POTASSIUM 3.2 mmol/L (3.5-5.1); SODIUM 126 mmol/L (136-145)
[2018-04-23] VITALS: BP 142/81
[2018-04-23 08:00] VITALS: BP 134/72
[2018-04-23 12:00] VITALS: BP 152/87
[2018-04-23 16:00] VITALS: BP 149/82
[2018-04-23 20:00] VITALS: BP 126/78
[2018-04-24] VITALS: BP 172/95
[2018-04-24 06:29] LABS: INTERNATIONAL NORM RATIO 1.8 (2.0-3.5)
[2018-04-24 06:37] LABS: BUN 13 mg/dl (7-24); CHLORIDE 99 mmol/L (98-107); CREATININE 0.92 mg/dL (0.70-1.30); POTASSIUM 3.7 mmol/L (3.5-5.1); SODIUM 136 mmol/L (136-145)
[2018-04-24 08:00] VITALS: BP 166/98; BP 168/98
[2018-04-24 12:00] VITALS: BP 140/84
[2018-04-24 16:00] VITALS: BP 142/92
[2018-04-24 20:00] VITALS: BP 140/89
[2018-04-25] VITALS (7 sets, daily range): BP systolic 145–200; BP diastolic 90–114
[2018-04-25 06:49] LABS: BUN 14 mg/dl (7-24); CHLORIDE 113 mmol/L (98-107); CREATININE 1.17 mg/dL (0.70-1.30); POTASSIUM 3.6 mmol/L (3.5-5.1)
[2018-04-25 06:50] LABS: SODIUM 149 mmol/L (136-145)
[2018-04-25 06:52] LABS: INTERNATIONAL NORM RATIO 1.8 (2.0-3.5)
[2018-04-25 18:49] LABS: BILIRUBIN NEGATIVE (NEGATIVE); BLOOD 3+ (NEGATIVE); CLARITY SL CLOUDY (CLEAR); COLOR YELLOW (YELLOW); GLUCOSE NEGATIVE (NEGATIVE); KETONE NEGATIVE (NEGATIVE); LEUKO ESTERASE TRACE (NEGATIVE); NITRITE NEGATIVE (NEGATIVE); SPECIFIC GRAVITY 1.015 (1.005-1.030); UROBILINOGEN 0.2 E.U./dl (0.2-1.0)
[2018-04-25 18:57] LABS: URINE CREATININE RANDOM 59.9 mg/dL
[2018-04-25 19:16] LABS: RBC TNTC rbc/hpf (0-2)
[2018-04-25 19:17] LABS: BACTERIA 1+
[2018-04-26] VITALS: BP 170/100
[2018-04-26 06:32] LABS: BUN 19 mg/dl (7-24); CHLORIDE 110 mmol/L (98-107); CREATININE 1.29 mg/dL (0.70-1.30); POTASSIUM 3.8 mmol/L (3.5-5.1); SODIUM 150 mmol/L (136-145)
[2018-04-26 08:00] VITALS: BP 184/110
[2018-04-26 12:00] VITALS: BP 169/116
[2018-04-26 16:00] VITALS: BP 162/97
[2018-04-26 20:00] VITALS: BP 169/105
[2018-04-27 03:30] VITALS: BP 160/100
[2018-04-27 05:30] VITALS: BP 160/98
[2018-04-27 06:36] LABS: BUN 25 mg/dl (7-24); CHLORIDE 105 mmol/L (98-107); CREATININE 1.27 mg/dL (0.70-1.30); POTASSIUM 3.1 mmol/L (3.5-5.1); SODIUM 142 mmol/L (136-145)
[2018-04-27 08:00] VITALS: BP 130/78
[2018-04-27 12:00] VITALS: BP 126/70
[2018-04-27 16:00] VITALS: BP 138/72
[2018-04-27] MEDS ORDERED: HYDR25T PO (16:07)
[2018-04-27] MEDS ORDERED: DESMOPRESSIN NAS (16:07)
[2018-04-27] MEDS ORDERED: 'CLONIDINE0.1 MG PO (16:07)
[2018-04-27 20:00] VITALS: BP 147/88
[2018-04-28] VITALS: BP 136/84
[2018-04-28 05:35] VITALS: BP 146/78
[2018-04-28 06:53] LABS: INTERNATIONAL NORM RATIO 3.5 (2.0-3.5)
[2018-04-28 08:00] VITALS: BP 128/77
[2018-04-28 12:00] VITALS: BP 122/96
== END 2018-04-28 14:17 | disposition other institution (70) | DRG 643 ==
LOC: ED 15:44 → ICCU 17:03 → EDHOLD 17:03 → ICCU 17:17 → 5E 04-22 18:07
PROVIDERS: Emergency Medicine; Family Medicine; Internal Medicine; Internal Medicine Nephrology; Ophthalmology; Student in an Organized Health Care Education/Training Program
DX: E23.2 Diabetes insipidus (principal); G93.41 Metabolic encephalopathy; R65.11 Systemic inflammatory response syndrome (SIRS) of non-infectious origin with acute organ dysfunction; I82.532 Chronic embolism and thrombosis of left popliteal vein; Q61.3 Polycystic kidney, unspecified; I48.91 Unspecified atrial fibrillation; I45.10 Unspecified right bundle-branch block; D50.9 Iron deficiency anemia, unspecified; E66.3 Overweight; R14.0 Abdominal distension (gaseous); R60.9 Edema, unspecified; I16.0 Hypertensive urgency; I67.1 Cerebral aneurysm, nonruptured; R56.9 Unspecified convulsions; R00.0 Tachycardia, unspecified; E78.5 Hyperlipidemia, unspecified; R73.9 Hyperglycemia, unspecified; I10 Essential (primary) hypertension; Z79.899 Other long term (current) drug therapy; Z86.14 Personal history of Methicillin resistant Staphylococcus aureus infection; Z87.440 Personal history of urinary (tract) infections; Z82.49 Family history of ischemic heart disease and other diseases of the circulatory system; Z80.42 Family history of malignant neoplasm of prostate; Z84.1 Family history of disorders of kidney and ureter; Z87.891 Personal history of nicotine dependence; Z68.24 Body mass index [BMI] 24.0-24.9, adult

== ENCOUNTER 2018-05-05 13:16 | Emergency (ER) | payer OTHER, MEDICARE ==
[~2018-05-05] VITALS: Ht 170.1 cm; Wt 70.3 kg
[~2018-05-05 13:16] MED LIST changes: +'CLONIDINE0.1 MG PO; +HYDR25T PO; +LEVETIRACETAM750 MG PO; +POTASSIUM CHLO20 ME4 PO
[2018-05-05 13:57] LABS: BASO % 0.5 % (0.0-1.0); EOS # 0.2 10*3/uL (0.0-0.4); EOS % 2.1 % (1.0-4.0); HEMATOCRIT 31.7 % (42.0-52.0); HEMOGLOBIN 10.8 g/dl (14.0-18.0); LYMPH # 1.1 10*3/uL (1.3-4.4); MEAN CELL VOLUME 81.7 fl (80.0-94.0); MEAN CORPUSCULAR HGB 27.8 pg (27.0-31.0); MEAN CORPUSCULAR HGB CONC 34.1 g/dl (33.0-37.0); MEAN PLATELET VOLUME 11.2 fl (9.6-12.3); MONO # 0.4 10*3/uL (0.1-1.0); NEUT # 5.9 10*3/uL (2.3-7.9); NEUT % 78.1 % (47.0-73.0); PLATELET COUNT AUTOMATED 189 10*3/uL (130-400); RED BLOOD COUNT 3.88 10*6/uL (4.50-5.90); RED CELL DISTRI WIDTH 15.9 % (0-14.5); WHITE BLOOD COUNT 7.6 10*3/uL (4.8-10.8)
[2018-05-05 14:11] LABS: ALBUMIN 3.6 gm/dl (3.1-4.5); ALKALINE PHOSPHATASE 107 U/L (45-117); BUN 27 mg/dl (7-24); CHLORIDE 105 mmol/L (98-107); CREATININE 1.32 mg/dL (0.70-1.30); POTASSIUM 3.6 mmol/L (3.5-5.1); SGOT/AST 13 IU/L (3-35); SGPT/ALT 25 U/L (12-78); SODIUM 143 mmol/L (136-145); TOTAL PROTEIN 7.2 gm/dL (6.4-8.2)
[2018-05-05 14:13] LABS: INTERNATIONAL NORM RATIO 2.7 (2.0-3.5)
== END 2018-05-05 17:00 | disposition short-term general hospital (02) ==
LOC: ED 13:16
PROVIDERS: Emergency Medicine
DX: I62.9 Nontraumatic intracranial hemorrhage, unspecified (principal); I10 Essential (primary) hypertension; E78.5 Hyperlipidemia, unspecified; E23.2 Diabetes insipidus; Z79.02 Long term (current) use of antithrombotics/antiplatelets; Z86.718 Personal history of other venous thrombosis and embolism; Z79.899 Other long term (current) drug therapy; Z87.891 Personal history of nicotine dependence

== ENCOUNTER → 2018-06-21 | Outpatient (CLI) | payer MEDICARE | END | disposition home or self-care (01) | LOC: CT 03:09 | DX: I61.8 Other nontraumatic intracerebral hemorrhage (principal); Z98.890 Other specified postprocedural states ==

== ENCOUNTER 2018-09-15 13:42 | Emergency (ER) | payer MEDICARE ==
[~2018-09-15] VITALS: Ht 170.1 cm; Wt 82.1 kg
[2018-09-15 14:19] LABS: BASO % 0.4 % (0.0-1.0); EOS # 0.2 10*3/uL (0.0-0.4); EOS % 3.3 % (1.0-4.0); HEMATOCRIT 35.2 % (42.0-52.0); HEMOGLOBIN 11.7 g/dl (14.0-18.0); LYMPH # 1.5 10*3/uL (1.3-4.4); LYMPH % 21.5 % (27.0-41.0); MEAN CELL VOLUME 86.7 fl (80.0-94.0); MEAN CORPUSCULAR HGB 28.8 pg (27.0-31.0); MEAN CORPUSCULAR HGB CONC 33.2 g/dl (33.0-37.0); MONO # 0.3 10*3/uL (0.1-1.0); MONO % 4.5 % (3.0-9.0); NEUT # 4.9 10*3/uL (2.3-7.9); PLATELET COUNT AUTOMATED 189 10*3/uL (130-400); RED BLOOD COUNT 4.06 10*6/uL (4.50-5.90); RED CELL DISTRI WIDTH 16.6 % (0-14.5); WHITE BLOOD COUNT 6.9 10*3/uL (4.8-10.8)
[2018-09-15 14:35] LABS: ALBUMIN 3.7 gm/dl (3.1-4.5); ALKALINE PHOSPHATASE 137 U/L (45-117); BUN 36 mg/dl (7-24); CHLORIDE 108 mmol/L (98-107); CREATININE 1.51 mg/dL (0.70-1.30); SGOT/AST 23 IU/L (3-35); SGPT/ALT 42 U/L (12-78); SODIUM 143 mmol/L (136-145); TOTAL PROTEIN 7.8 gm/dL (6.4-8.2)
[2018-09-15 14:52] LABS: INTERNATIONAL NORM RATIO 1.3 (2.0-3.5)
== END 2018-09-15 17:32 | disposition home or self-care (01) ==
LOC: ED 13:42
PROVIDERS: Emergency Medicine
DX: S00.83XA Contusion of other part of head, initial encounter (principal); R56.9 Unspecified convulsions; I10 Essential (primary) hypertension; E78.5 Hyperlipidemia, unspecified; E23.2 Diabetes insipidus; Z87.891 Personal history of nicotine dependence; Z87.442 Personal history of urinary calculi; Z86.73 Personal history of transient ischemic attack (TIA), and cerebral infarction without residual deficits; Z79.899 Other long term (current) drug therapy; Z79.01 Long term (current) use of anticoagulants; W19.XXXA Unspecified fall, initial encounter; Y93.89 Activity, other specified; Y92.238 Other place in hospital as the place of occurrence of the external cause; Y99.8 Other external cause status

== ENCOUNTER 2019-03-03 12:50 | Emergency (ER) | payer MEDICARE, MEDICAID ==
[~2019-03-03] VITALS: Ht 170.1 cm; Wt 59.0 kg
[2019-03-03 13:32] LABS: BASO % 0.4 % (0.0-1.0); EOS # 0.2 10*3/uL (0.0-0.4); EOS % 3.8 % (1.0-4.0); HEMATOCRIT 33.8 % (42.0-52.0); HEMOGLOBIN 11.3 g/dl (14.0-18.0); LYMPH # 1.3 10*3/uL (1.3-4.4); LYMPH % 23.8 % (27.0-41.0); MEAN CELL VOLUME 87.8 fl (80.0-94.0); MEAN CORPUSCULAR HGB 29.4 pg (27.0-31.0); MEAN CORPUSCULAR HGB CONC 33.4 g/dl (33.0-37.0); MEAN PLATELET VOLUME 11.5 fl (9.6-12.3); MONO # 0.4 10*3/uL (0.1-1.0); MONO % 6.5 % (3.0-9.0); NEUT # 3.6 10*3/uL (2.3-7.9); NEUT % 65.3 % (47.0-73.0); PLATELET COUNT AUTOMATED 136 10*3/uL (130-400); RED BLOOD COUNT 3.85 10*6/uL (4.50-5.90); RED CELL DISTRI WIDTH 14.5 % (0-14.5); WHITE BLOOD COUNT 5.5 10*3/uL (4.8-10.8)
[2019-03-03 13:41] LABS: INTERNATIONAL NORM RATIO 1.4 (2.0-3.5)
[2019-03-03 13:48] LABS: ALBUMIN 3.4 gm/dl (3.1-4.5); CREATININE 1.72 mg/dL (0.70-1.30); POTASSIUM 3.7 mmol/L (3.5-5.1); TOTAL PROTEIN 6.9 gm/dL (6.4-8.2)
[2019-03-03 14:31] LABS: BILIRUBIN 2+ (NEGATIVE); BLOOD 3+ (NEGATIVE); CLARITY CLOUDY (CLEAR); COLOR RED (YELLOW); GLUCOSE NEGATIVE (NEGATIVE); KETONE NEGATIVE (NEGATIVE); LEUKO ESTERASE 2+ (NEGATIVE); NITRITE POSITIVE (NEGATIVE); PH 5.5 (5.0-9.0); SPECIFIC GRAVITY 1.015 (1.005-1.030); UROBILINOGEN 0.2 E.U./dl (0.2-1.0)
[2019-03-03 14:38] LABS: WBC 0-2 wbc/hpf (0-5)
[2019-03-03 14:39] LABS: RBC TNTC rbc/hpf (0-2)
[2019-03-03] MEDS ORDERED: CEFUROXIME AXE500 MG PO (14:50)
== END 2019-03-03 14:53 | disposition home or self-care (01) ==
LOC: ED 12:50
PROVIDERS: Emergency Medicine; Nurse Practitioner Family
DX: N39.0 Urinary tract infection, site not specified (principal); Z79.899 Other long term (current) drug therapy; Z79.01 Long term (current) use of anticoagulants; Z87.891 Personal history of nicotine dependence

== ENCOUNTER → 2019-06-13 | Outpatient (CLI) | payer MEDICARE, MEDICAID ==
[~2019-06-13] MED LIST changes: +CEFUROXIME AXE500 MG PO
== END | disposition home or self-care (01) ==
LOC: CT 00:37
DX: I62.03 Nontraumatic chronic subdural hemorrhage (principal); G93.89 Other specified disorders of brain; Z48.811 Encounter for surgical aftercare following surgery on the nervous system

== ENCOUNTER 2019-08-31 18:47 | Emergency (ER) | payer OTHER ==
[2019-08-31 19:13] LABS: BASO # 0.1 10*3/uL (0.0-0.1); BASO % 0.4 % (0.0-1.0); EOS # 0.2 10*3/uL (0.0-0.4); EOS % 1.6 % (1.0-4.0); HEMATOCRIT 29.4 % (42.0-52.0); HEMOGLOBIN 9.1 g/dl (14.0-18.0); LYMPH # 1.5 10*3/uL (1.3-4.4); LYMPH % 13.2 % (27.0-41.0); MEAN CELL VOLUME 91.9 fl (80.0-94.0); MEAN CORPUSCULAR HGB 28.4 pg (27.0-31.0); MEAN PLATELET VOLUME 9.7 fl (9.6-12.3); MONO % 8.8 % (3.0-9.0); NEUT # 8.7 10*3/uL (2.3-7.9); NEUT % 74.6 % (47.0-73.0); PLATELET COUNT AUTOMATED 188 10*3/uL (130-400); RED CELL DISTRI WIDTH 14.6 % (0-14.5); WHITE BLOOD COUNT 11.7 10*3/uL (4.8-10.8)
[2019-08-31 19:29] LABS: ALBUMIN 2.4 gm/dl (3.1-4.5); CREATININE 1.56 mg/dL (0.70-1.30); POTASSIUM 3.9 mmol/L (3.5-5.1); TOTAL PROTEIN 7.3 gm/dL (6.4-8.2)
[2019-08-31 19:39] LABS: CLARITY CLOUDY (CLEAR); COLOR RED (YELLOW)
[2019-08-31 19:44] LABS: BACTERIA TRACE; RBC TNTC rbc/hpf (0-2); WBC 16-20 wbc/hpf (0-5)
[2019-08-31 19:45] LABS: MUCOUS 1+
[2019-08-31] MEDS ORDERED: CLONIDINE0.3 MG PO (19:45)
[2019-08-31] MEDS ORDERED: LABETALOL HCL200 MG PO (19:45)
[2019-08-31 19:46] LABS: BILIRUBIN NEGATIVE (NEGATIVE); BLOOD 3+ (NEGATIVE); GLUCOSE NEGATIVE (NEGATIVE); KETONE NEGATIVE (NEGATIVE); LEUKO ESTERASE 2+ (NEGATIVE); NITRITE NEGATIVE (NEGATIVE)
[2019-08-31] MEDS ORDERED: LORAZEPAM0.5 MG PO (19:46)
[2019-08-31] MEDS ORDERED: HYDRALAZINE HC100 MG PO (19:47)
[2019-08-31] MEDS ORDERED: AMLODIPINE BESY10 MG PO (19:47)
[2019-08-31] MEDS ORDERED: ATORVASTATIN CA20 M1 PO (19:47)
[2019-08-31] MEDS ORDERED: LEVETIRACETAM500 MG PO (19:48)
[2019-08-31] MEDS ORDERED: DIVALPROEX SOD500 MG PO (19:49)
[2019-08-31] MEDS ORDERED: DEPAKOTE DR500 MG PO (19:51)
[2019-08-31 20:13] LABS: ACT PARTIAL THROMBO TIME 29.3 SECONDS (20.0-32.1); INTERNATIONAL NORM RATIO 1.1 (2.0-3.5)
== END 2019-09-01 00:05 | disposition short-term general hospital (02) ==
LOC: ED 18:47
PROVIDERS: Nurse Practitioner
DX: N17.9 Acute kidney failure, unspecified (principal); R31.9 Hematuria, unspecified; R56.9 Unspecified convulsions; I10 Essential (primary) hypertension; E78.5 Hyperlipidemia, unspecified; Z79.899 Other long term (current) drug therapy; Z79.2 Long term (current) use of antibiotics; Z86.718 Personal history of other venous thrombosis and embolism

== ENCOUNTER → 2022-01-13 | Outpatient (CLI) | payer OTHER ==
[~2022-01-13] MED LIST changes: +AMLODIPINE BESY10 MG PO; +ATORVASTATIN CA20 M1 PO; +CLONIDINE0.3 MG PO; +DEPAKOTE DR500 MG PO; +DIVALPROEX SOD500 MG PO; +HYDRALAZINE HC100 MG PO; +LEVETIRACETAM500 MG PO; +LORAZEPAM0.5 MG PO
== END | disposition home or self-care (01) ==
LOC: RAD/SH 08:57
PROVIDERS: ATTEND Internal Medicine
DX: R13.12 Dysphagia, oropharyngeal phase (principal)

== ENCOUNTER 2022-08-05 22:33 | Inpatient (IN) | payer OTHER ==
[~2022-08-05] VITALS: Ht 180.3 cm; Wt 83.1 kg
[~2022-08-05 22:33] MED LIST changes: +ACETAMINOPHEN325 M2 PO; +AMANTADINE50 MG/5 ML PO; +ATIVAN0.5 MG GT; +ATORVASTATIN CA40 M1 PO; +CEPACOL SORE T1 EACH MM; +CIPRO500 MG PO; +DEPAKOTE SPRIN125 MG PO; +DULCOLAX STOOL100 M1 PO; +ELIQUIS5 M1 PO; +GENTLE LAXATIVE10 MG R; +Ipratropium Brom3 ML INH; +LEVETIRACE100 MG/1 M GT; -LORAZEPAM0.5 MG PO; +MILK OF MA400 MG/51 PO; +NATURE'S BLEND F1 MG PO; +ONDANSETRON HYDR4 M1 GT; +PREDNISONE5 MG PO; +REGLAN5 MG PO; +SENNOSIDES-DOC1 EACH GT; +SODIUM BICARBO650 MG GT; +VITAMIN D3250 MC2 PO; +ZYVOX600 MG PO
[2022-08-05 22:41] VITALS: BP 156/117
[2022-08-06] VITALS (10 sets, daily range): BP systolic 152–182; BP diastolic 94–126
[2022-08-06 00:41] LABS: BASO % 0.4 % (0.0-1.0); EOS # 0.5 10*3/uL (0.0-0.4); EOS % 4.8 % (1.0-4.0); LYMPH # 1.6 10*3/uL (1.3-4.4); LYMPH % 15.5 % (27.0-41.0); MEAN CELL VOLUME 100.9 fl (80.0-94.0); MEAN CORPUSCULAR HGB 30.9 pg (27.0-31.0); MEAN CORPUSCULAR HGB CONC 30.6 g/dl (33.0-37.0); MEAN PLATELET VOLUME 10.2 fl (9.6-12.3); MONO # 0.8 10*3/uL (0.1-1.0); MONO % 7.7 % (3.0-9.0); NEUT # 7.3 10*3/uL (2.3-7.9); NEUT % 70.8 % (47.0-73.0); NUCLEATED RED BLOOD CELL 0.2 % (0.0-0.0); PLATELET COUNT AUTOMATED 214 10*3/uL (130-400); RED BLOOD COUNT 3.17 10*6/uL (4.50-5.90); RED CELL DISTRI WIDTH 18.3 % (0-14.5); WHITE BLOOD COUNT 10.2 10*3/uL (4.8-10.8)
[2022-08-06 00:57] LABS: ALKALINE PHOSPHATASE 102 U/L (46-116); BUN 100 mg/dl (9-23); CHLORIDE 116 mmol/L (98-107); SGPT/ALT < 7 U/L (10-49); TOTAL PROTEIN 7.5 gm/dL (6.0-8.0)
[2022-08-06 06:37] LABS: BILIRUBIN Negative (Negative); BLOOD 3+ (Negative); CLARITY Cloudy (Clear); COLOR Red (Yellow); GLUCOSE Negative (Negative); KETONE Negative (Negative); NITRITE Negative (Negative); SPECIFIC GRAVITY 1.015 (1.001-1.030); UROBILINOGEN 0.2 E.U./dl (0.0-1.0)
[2022-08-06 06:42] LABS: LEUKO ESTERASE 1+ (Negative)
[2022-08-06 06:49] LABS: BACTERIA 2+; RBC TNTC rbc/hpf (0-2); WBC 16-20 wbc/hpf (0-5)
[2022-08-07] VITALS: BP 145/103
[2022-08-07 08:00] VITALS: BP 118/65
== END 2022-08-07 11:01 | disposition hospice, inpatient (51) | DRG 871 ==
LOC: ED 22:33 → EDHOLD 08-06 06:49 → 4E 08-06 11:38
PROVIDERS: Emergency Medicine; ADMIT Internal Medicine; ATTEND Internal Medicine
DX: A41.9 Sepsis, unspecified organism (principal); J96.01 Acute respiratory failure with hypoxia; E87.0 Hyperosmolality and hypernatremia; N17.9 Acute kidney failure, unspecified; I16.9 Hypertensive crisis, unspecified; Z66 Do not resuscitate; N18.9 Chronic kidney disease, unspecified; F41.9 Anxiety disorder, unspecified; I12.9 Hypertensive chronic kidney disease with stage 1 through stage 4 chronic kidney disease, or unspecified chronic kidney disease; G40.909 Epilepsy, unspecified, not intractable, without status epilepticus; R31.9 Hematuria, unspecified; Z51.5 Encounter for palliative care; Z87.891 Personal history of nicotine dependence; Z79.01 Long term (current) use of anticoagulants; Z82.49 Family history of ischemic heart disease and other diseases of the circulatory system

== ENCOUNTER 2022-08-07 11:21 | Inpatient (IN) | payer OTHER ==
[~2022-08-07] VITALS: Ht 180.3 cm; Wt 83.0 kg
[2022-08-07 12:00] VITALS: BP 117/80
[2022-08-07 16:00] VITALS: BP 116/82
[2022-08-07 20:00] VITALS: BP 90/68
[2022-08-08] VITALS: BP 106/71
[2022-08-08 04:25] VITALS: BP 85/52
[2022-08-08 08:00] VITALS: BP 91/36
[2022-08-08 12:00] VITALS: BP 77/35
== END 2022-08-08 13:48 | DRG 193 ==
LOC: 4E 11:21
PROVIDERS: ADMIT Internal Medicine; ATTEND Internal Medicine
DX: J18.9 Pneumonia, unspecified organism (principal); G93.41 Metabolic encephalopathy; K92.2 Gastrointestinal hemorrhage, unspecified; N17.9 Acute kidney failure, unspecified; Q61.3 Polycystic kidney, unspecified; Z51.5 Encounter for palliative care; I10 Essential (primary) hypertension; R31.9 Hematuria, unspecified; E78.5 Hyperlipidemia, unspecified; N20.0 Calculus of kidney; R56.9 Unspecified convulsions; G93.89 Other specified disorders of brain; I46.9 Cardiac arrest, cause unspecified; Z79.899 Other long term (current) drug therapy